=== PATIENT | female | born 1995 | race Caucasian/White ===

== ENCOUNTER 2018-12-24 00:28 | Inpatient (IN) | payer OTHER ==
[2018-12-24] MEDS: morphine 4 MG/ML VIAL IV (01:54)
[2018-12-24] MEDS: ONDANSETRON 4 MG INJ IV (01:54)
[2018-12-24] MEDS: SOD CHLORIDE 0.9% 1,000 ML IV ×3 (02:01→16:14)
[2018-12-24 02:03] LABS: ADD MAN DIFF? NO
[2018-12-24 02:06] LABS: WHITE BLOOD COUNT 16.3 10^3/ul (4.8-10.8)
[2018-12-24 02:07] LABS: BASOPHILS % 0.2 % (0.0-2.0); EOSINOPHILS % 0.2 % (0.0-7.0); HEMATOCRIT 46.3 % (37.0-47.0); HEMOGLOBIN 15.7 g/dl (12.0-16.0); LYMPHOCYTES # 1.7 10^3/ul (0.8-2.9); LYMPHOCYTES % 10.5 % (15.0-51.0); MEAN CORPUSCULAR HEMOGLOBIN 31.6 pg (29.0-33.0); MEAN CORPUSCULAR HGB CONC 33.9 g/dl (32.0-37.0); MEAN CORPUSCULAR VOLUME 93.2 fl (82.0-101.0); MEAN PLATELET VOLUME 9.3 fl (7.4-10.4); MONOCYTE # 0.9 10^3/ul (0.3-0.9); MONOCYTES % 5.7 % (0.0-11.0); NEUTROPHIL # 13.5 10^3/ul (1.6-7.5); PLATELET COUNT 266 10^3/UL (140-415); RED BLOOD COUNT 4.97 10^6/ul (4.20-5.40); RED CELL DISTRIBUTION WIDTH 11.3 % (11.5-14.5)
[2018-12-24 02:23] LABS: ADD UMIC NO; ALANINE AMINOTRANSFERASE 20 IU/L (13-69); ALBUMIN 4.9 g/dl (3.3-4.9); ALBUMIN/GLOBULIN RATIO 1.36; ALKALINE PHOSPHATASE 80 IU/L (42-121); ANION GAP 12 (5-13); ASPARTATE AMINO TRANSFERASE 23 IU/L (15-46); BILIRUBIN,INDIRECT 0.4 mg/dl (0-1.1); BILIRUBIN,TOTAL 0.4 mg/dl (0.2-1.3); BLOOD UREA NITROGEN 13 mg/dl (7-20); CALCIUM 10.1 mg/dl (8.4-10.2); CARBON DIOXIDE 23 mmol/L (21-31); CHLORIDE 106 mmol/L (97-110); CREATININE 0.75 mg/dl (0.44-1.00); Estimated GFR > 60 mL/min (>60); GLUCOSE 110 mg/dl (70-220); LIPASE 75 U/L (23-300); POTASSIUM 3.6 mmol/L (3.5-5.1); SODIUM 141 mmol/L (135-144); TOTAL PROTEIN 8.5 g/dl (6.1-8.1); UR ASCORBIC ACID NEGATIVE (NEGATIVE); UR BACTERIA FEW /HPF (NONE SEEN); UR BILIRUBIN (Dip) NEGATIVE (NEGATIVE); UR BLOOD (Dip) NEGATIVE (NEGATIVE); UR CLARITY SLIGHTLY CLOUDY (CLEAR); UR COLOR YELLOW (YELLOW); UR GLUCOSE (Dip) NEGATIVE (NEGATIVE); UR KETONES (Dip) NEGATIVE (NEGATIVE); UR LEUKOCYTE ESTERASE (Dip) NEGATIVE Leu/ul (NEGATIVE); UR MUCUS FEW /HPF (NONE SEEN); UR NITRITE (Dip) NEGATIVE (NEGATIVE); UR RBC 1 /HPF (0-5); UR SPECIFIC GRAVITY (Dip) 1.029 (1.003-1.030); UR SQUAMOUS EPITHELIAL CELL FEW /HPF (FEW); UR TOTAL PROTEIN (Dip) NEGATIVE (NEGATIVE); UR UROBILINOGEN (Dip) NEGATIVE (NEGATIVE); UR WBC 4 /HPF (0-5)
[2018-12-24 02:26] LABS: INR 0.92; PROTIME 12.5 Sec (11.9-14.9)
[2018-12-24 02:27] LABS: PARTIAL THROMBOPLASTIN TIME 31.7 Sec (23.0-35.0)
[2018-12-24] MEDS: PIPER-TAZO 3.375 GM IV (PMX) 100 ML IVPB ×4 (02:59→19:50)
[2018-12-24] MEDS ORDERED: ONDANSETRON 4 MG INJ IV ×4 (03:30→12:30)
[2018-12-24] MEDS ORDERED: ACETAMINOPHEN 325 MG TAB PO ×2 (03:30→12:30)
[2018-12-24] MEDS ORDERED: DESFLURANE 15 MIN (11:35)
[2018-12-24] MEDS ORDERED: ONDANSETRON 4 MG INJ (11:35)
[2018-12-24] MEDS ORDERED: LIDOCAINE 2% (SDV) 5 ML INJ (11:35)
[2018-12-24] MEDS ORDERED: GLYCOPYRROLATE 0.4 MG INJ (11:35)
[2018-12-24] MEDS ORDERED: ROCURONIUM 50 MG INJ (11:35)
[2018-12-24] MEDS ORDERED: METOCLOPRAMIDE 10 MG INJ (11:35)
[2018-12-24] MEDS ORDERED: PROPOFOL 20 ML (11:35)
[2018-12-24] MEDS ORDERED: NEOSTIGMINE 3 MG/3 ML SYRINGE ×2 (11:35→12:40)
[2018-12-24] MEDS ORDERED: MIDAZOLAM 1 MG/ML 2 ML INJ (11:51)
[2018-12-24] MEDS ORDERED: PROCHLORPERAZINE 10 MG INJ IV (12:00)
[2018-12-24] MEDS ORDERED: OXYCODONE/ACETAMINOPHEN (5/325) TAB PO (12:00)
[2018-12-24] MEDS: BUPIVACAINE 0.25% (MPF) 30 ML INJ INJ (12:22)
[2018-12-24] MEDS ORDERED: morphine 2 MG INJ IV (12:30)
[2018-12-24] MEDS: LIDOCAINE 1%/EPI (1:100,000) (MDV) 20 ML (12:43)
[2018-12-24] MEDS: MEPERIDINE 25 MG INJ IV (13:16)
[2018-12-24] MEDS: HYDROmorphONE 1 MG/5 ML IV SYRINGE IV (13:16)
[2018-12-24] MEDS: FENTAnyl 50 MCG/ML VIAL IV (13:16)
[2018-12-24] MEDS: D5-NS + KCL 20 MEQ 1,000 ML IV ×2 (14:34→22:01)
[2018-12-24] MEDS: HYDROCODONE/APAP (5/325) TAB PO (19:16)
[2018-12-24] MEDS: morphine 2 MG INJ IV (21:17)
[2018-12-25] MEDS: PIPER-TAZO 3.375 GM IV (PMX) 100 ML IVPB ×3 (00:32→11:12)
[2018-12-25] MEDS: SOD CHLORIDE 0.9% 1,000 ML IV ×2 (02:20→14:00)
[2018-12-25] MEDS: HYDROCODONE/APAP (5/325) TAB PO ×2 (02:24→14:32)
[2018-12-25] MEDS: D5-NS + KCL 20 MEQ 1,000 ML IV (02:24)
[2018-12-25 05:20] LABS: ADD MAN DIFF? NO
[2018-12-25 05:30] LABS: WHITE BLOOD COUNT 7.6 10^3/ul (4.8-10.8)
[2018-12-25 05:30] LABS: BASOPHILS % 0.1 % (0.0-2.0); EOSINOPHILS % 0.5 % (0.0-7.0); HEMATOCRIT 33.8 % (37.0-47.0); HEMOGLOBIN 11.3 g/dl (12.0-16.0); LYMPHOCYTES # 2.4 10^3/ul (0.8-2.9); LYMPHOCYTES % 31.8 % (15.0-51.0); MEAN CORPUSCULAR HEMOGLOBIN 32.1 pg (29.0-33.0); MEAN CORPUSCULAR HGB CONC 33.4 g/dl (32.0-37.0); MEAN PLATELET VOLUME 9.5 fl (7.4-10.4); MONOCYTE # 0.6 10^3/ul (0.3-0.9); MONOCYTES % 7.3 % (0.0-11.0); NEUTROPHIL # 4.5 10^3/ul (1.6-7.5); PLATELET COUNT 200 10^3/UL (140-415); RED BLOOD COUNT 3.52 10^6/ul (4.20-5.40); RED CELL DISTRIBUTION WIDTH 11.8 % (11.5-14.5)
[2018-12-25] MEDS: PANTOPRAZOLE 40 MG INJ IV (05:45)
[2018-12-25 05:57] LABS: ANION GAP 3 (5-13); BLOOD UREA NITROGEN 4 mg/dl (7-20); CALCIUM 8.4 mg/dl (8.4-10.2); CARBON DIOXIDE 26 mmol/L (21-31); CHLORIDE 109 mmol/L (97-110); CREATININE 0.76 mg/dl (0.44-1.00); Estimated GFR > 60 mL/min (>60); GLUCOSE 122 mg/dl (70-220); SODIUM 138 mmol/L (135-144)
[2018-12-25] MEDS: ENOXAPARIN 40 MG/0.4 ML SYG SC (06:49)
[2018-12-25] MEDS: OXYCODONE/ACETAMINOPHEN (5/325) TAB PO (09:06)
== END 2018-12-25 17:00 | disposition home or self-care (01) | DRG 342 ==
LOC: MS1 04:39 → FTE 00:28 → MS1 03:10
PROC: 0DTJ4ZZ Resection of Appendix, Percutaneous Endoscopic Approach (ICD-10-PCS; principal; 2018-12-24 12:00)
DX: K35.30 Acute appendicitis with localized peritonitis, without perforation or gangrene (principal); R65.10 Systemic inflammatory response syndrome (SIRS) of non-infectious origin without acute organ dysfunction
CPT/HCPCS: 36415; 71045; 74176; 80048; 80053; 81001; 81003; 81025; 83605; 83690; 85025; 85610; 85730; 87040-91; 88304; 93005; 96374; 96375; 99285-25